=== PATIENT | male | born 1935 | race Caucasian/White ===

== ENCOUNTER 2016-10-28 11:00 | Inpatient (IN) ==
[2016-10-28 13:20] LABS: Basophils # (Auto) 0 K/mcL (0.0-0.3); Basophils % (Auto) 0.4 % (0.0-2.0); Eosinophils # (Auto) 0.1 K/mcL (0.0-0.7); Eosinophils % (Auto) 1.4 % (0.0-7.0); Granulocytes % (Auto) 41.8 % (38.0-78.0); Lymphocytes # (Auto) 3.1 K/mcL (1.5-4.8); Lymphocytes % (Auto) 43.3 % (15.5-49.0); Mean Cell Volume 97.5 fL (80.0-100.0); Mean Corpuscular HGB Conc 32.5 g/dL (31.0-36.0); Mean Corpuscular Hemoglobin 31.7 pg (26.0-34.0); Monocytes # (Auto) 0.9 K/mcL (0.1-0.9); Monocytes % (Auto) 13.1 % (1.0-12.0); Platelet Count 233 K/mcL (140-440); Red Cell Distribution Width 14.1 % (11.5-14.5)
[2016-10-28 13:35] LABS: Blood Urea Nitrogen 20 mg/dl (8-23)
[2016-10-28 14:24] LABS: Appearance,Urine CLEAR; Bacteria,Urine 0 /hpf (0); Bilirubin,Urine NEG (NEG); Color,Urine YELLOW; Glucose,Urine (UA) NEGATIVE (NEG); Leukocyte Esterase,Urine NEG /uL (NEG); Nitrate,Urine NEG (NEG); Protein,Urine NEG (NEG); Specific Gravity,Urine 1.009 (1.000-1.035); Urine Blood 0.2 mg/dL (<0.03); Urine RBC < 1 /hpf (0-1); Urine Squamous Epithelial Cell 0 /hpf (0-4); Urine WBC < 1 /hpf (0-4); Urobilinogen,Urine NEG (NEG)
[2016-11-04] MEDS ORDERED: ceFAZolin 1 GM VIAL IV SCH (05:00)
[2016-11-04] MEDS ORDERED: CELECOXIB 200 MG CAPSULE PO SCH (05:00)
[2016-11-04] MEDS ORDERED: ACETAMINOPHEN 500 MG TABLET PO SCH (05:00)
[2016-11-04] MEDS ORDERED: PREGABALIN 150 MG CAPSULE PO SCH (05:00)
[2016-11-04] MEDS ORDERED: oxyCODONE 10 MG TAB.ER.12H PO SCH (05:00)
[2016-11-04] MEDS ORDERED: ONDANSETRON 4 MG/2 ML VIAL IV ONE (09:40)
[2016-11-04] MEDS ORDERED: ROPIVACAINE HCL/PF 30 ML VIAL IJ ONE (09:40)
[2016-11-04] MEDS ORDERED: fentaNYL 250 MCG/5 ML VIAL IV ONE (09:40)
[2016-11-04] MEDS ORDERED: PROPOFOL 200 MG/20 ML VIAL IV ONE (09:40)
[2016-11-04] MEDS ORDERED: LIDOCAINE HCL/PF 100 MG/5 ML SYRINGE IV ONE (09:40)
[2016-11-04] MEDS ORDERED: DEXAMETHASONE 10 MG/ML VIAL IV ONE (09:40)
[2016-11-04] MEDS ORDERED: TRANEXAMIC ACID 1,000 MG/10 ML VIAL IV ONE ×2 (09:40→11:00)
[2016-11-04] MEDS ORDERED: MIDAZOLAM 5 MG/5 ML VIAL IV ONE (09:40)
[2016-11-04] MEDS ORDERED: PHENYLEPHRINE 10 MG/ML VIAL IV ONE (09:40)
[2016-11-04] MEDS ORDERED: GENTAMICIN SULFATE 800 MG/20 ML VIAL IR ONE (10:27)
[2016-11-04] MEDS ORDERED: METHOCARBAMOL 1,000 MG/10 ML VIAL IV PRN (10:39)
[2016-11-04] MEDS ORDERED: PROMETHAZINE 25 MG/ML VIAL IV PRN (10:39)
[2016-11-04] MEDS ORDERED: MEPERIDINE 25 MG/ML SYRINGE IV PRN (10:39)
[2016-11-04] MEDS ORDERED: METOPROLOL TARTRATE 5 MG/5 ML VIAL IV PRN (10:39)
[2016-11-04] MEDS ORDERED: ONDANSETRON 4 MG/2 ML VIAL IV PRN ×2 (10:39→11:00)
[2016-11-04] MEDS ORDERED: NALOXONE HCL 0.4 MG/ML VIAL IV PRN (10:39)
[2016-11-04] MEDS ORDERED: diphenhydrAMINE 50 MG/ML VIAL IV PRN (10:39)
[2016-11-04] MEDS ORDERED: ATROPINE SULFATE 0.4 MG/ML VIAL IV PRN (10:39)
[2016-11-04] MEDS ORDERED: HYDROmorphone 2 MG/ML SYRINGE IV PRN ×2 (10:39→11:00)
[2016-11-04] MEDS ORDERED: BENZOCAINE/MENTHOL 1 LOZENGE PO PRN (10:39)
[2016-11-04] MEDS ORDERED: IPRATROPIUM/ALBUTEROL 3 ML AMPUL.NEB NEB PRN (10:39)
[2016-11-04] MEDS ORDERED: ePHEDrine 50 MG/ML AMPUL IV PRN (10:39)
[2016-11-04] MEDS ORDERED: FLUMAZENIL 0.1 MG/ML ML IV PRN (10:39)
[2016-11-04] MEDS ORDERED: LACTATED RINGERS 1,000 ML IV SCH (10:45)
--- NOTE | 2016-11-04 10:59 | Brief Operative Note ---
Date of procedure: 11/04/16 Pre-op diagnosis: Right shoulder rca Post-op diagnosis: same Procedure: right reverse tsa Grafts/Implants: Yes Anesthesia: GETA Complications Description: 11/04/16 10:59 none Surgeon: Mateo Walker Surety Bond Agent: Keshawn Dwyer Estimated blood loss (cc): 20 Specimens Removed/Pathology: none sent Condition: stable Disposition: PACU
[2016-11-04] MEDS ORDERED: FLEETS ADULT ENEMA PR PRN (11:00)
[2016-11-04] MEDS ORDERED: POLYETHYLENE GLYCOL 3350 17 GM PACKET PO PRN (11:00)
[2016-11-04] MEDS ORDERED: MAGNESIUM HYDROXIDE 30 ML ORAL.SUSP PO PRN (11:00)
[2016-11-04] MEDS ORDERED: TEMAZEPAM 15 MG CAPSULE PO PRN (11:00)
[2016-11-04] MEDS ORDERED: KETOROLAC 15 MG/ML VIAL IV PRN (11:00)
[2016-11-04] MEDS ORDERED: HYDROcodone/APAP 10/325MG TABLET PO PRN (11:00)
[2016-11-04] MEDS ORDERED: BISACODYL 10 MG SUPP.RECT PR PRN (11:00)
[2016-11-04] MEDS ORDERED: ACETAMINOPHEN 325 MG TABLET PO PRN (11:00)
--- NOTE | 2016-11-04 12:04 | Operative Note ---
DATE OF OPERATION: 11/04/2016 PREOPERATIVE DIAGNOSES: Right shoulder degenerative arthritis, severe, biceps tendinopathy, rotator cuff tear. POSTOPERATIVE DIAGNOSIS: Right shoulder degenerative arthritis, severe biceps tendinopathy, rotator cuff tear. PROCEDURE: Right reverse total shoulder with cementless components, biceps tenodesis. SURGEON: Mateo Walker MD IP NETWORK ARCHITECT: Keshawn Dwyer PA-C ANESTHESIA: General LMA anesthesia. COMPLICATIONS: None. ESTIMATED BLOOD LOSS: About 20 mL DESCRIPTION OF PROCEDURE: The patient was brought to the operating room and put to sleep with general LMA anesthesia. Once asleep, the patient had the right shoulder sterilely prepped and draped in the usual sterile fashion. We placed Ioban over the skin to confirm the operative site. Preop antibiotics and tranexamic acid had been given. We then made a deltopectoral approach, identified the cephalic vein and this was retracted laterally. We then released the subscap anteriorly, released the remnants of the biceps tendon and then dislocated the shoulder. We cut our neck cut at the anatomical neck. Once this was done, we removed the bony fragments, placed a plate on the humeral head, subluxed posteriorly and performed a 360 degree capsulotomy and then placed a central hole in the glenoid at a 10-degree inclination which was reamed up to the size for 40 implant. We implanted a Metaglene with a 32 central screw, placed three additional screws, which measured 28, 24, 36, and all locked very well. We placed a 40 mm eccentric head with 2 mm of eccentricity and 2 mm of offset. A 40 mm implant was placed over the Metaglene, which was tapped into place. The glenosphere was locked. We then prepared the humerus. The humerus was reamed up to the size of a 10 stem. A 10 stem was trialled with standard thickness poly. A second cut of the neck to shorten this slightly for balancing the shoulder. We irrigated. This seemed to fit very nicely. Once this was done, we then implanted a size 10 cementless stem, a standard thickness poly. Once this was in place, we reduced the shoulder and irrigated thoroughly. We repaired the biceps tendon to the pectoralis major with 2 [id number] #1 Ethibond stitches. We irrigated thoroughly. We then closed the deltopectoral interval with 0 Vicryl and closed the skin with 2-0 Vicryl and kai. The patient tolerated this well without complication. EM:jaiden Job ID: [id number] Doc ID: [id number] Mateo aWlker MD
--- NOTE | 2016-11-04 12:24 | XRay Report ---
HISTORY: Reason for Exam:Post-OP Total Shoulder FINDINGS: There is a well positioned reverse shoulder prosthesis. No fracture is present. There is air in the soft tissues around the joint due to the surgical procedure. The AC joint is normal. IMPRESSION: Well-positioned right shoulder prosthesis Interpreted and Authenticated by: Zeus Hardy 11/04/16
[2016-11-04] MEDS: 0.45 % SODIUM CHLORIDE 1,000 ML IV SCH ×2 (12:31→19:53)
[2016-11-04] MEDS: 0.9 % SODIUM CHLORIDE 10 ML SYRINGE IV SCH ×2 (12:33→23:49)
[2016-11-04] MEDS: BENZOCAINE/MENTHOL 1 LOZENGE PO PRN ×2 (15:53→19:52)
[2016-11-04] MEDS: ceFAZolin 1 GM VIAL IV SCH (16:59)
[2016-11-04] MEDS: DOCUSATE SODIUM 100 MG CAPSULE PO SCH (20:26)
[2016-11-04] MEDS ORDERED: SENNOSIDES 1 TABLET PO SCH (21:00)
[2016-11-05] MEDS: ceFAZolin 1 GM VIAL IV SCH (02:07)
[2016-11-05] MEDS: 0.45 % SODIUM CHLORIDE 1,000 ML IV SCH (05:21)
[2016-11-05] MEDS: 0.9 % SODIUM CHLORIDE 10 ML SYRINGE IV SCH (05:21)
--- NOTE | 2016-11-05 07:42 | Orthopedic Progress Note ---
Subjective Patient information: Note initiated : 11/05/16 at 7:41 am Service Date, if different from initiated Date: [] Patient: Jose Mccord 81 y/o M admitted on 11/04/16 for Right Reverse Total Shoulder Arthroplasty and . Chief Complaint: [Pt is stable this morning on post operative day 1 without any significant concerns or complaints. Patients vital signs have remained stable. Patients dressing is dry and exhibits a grossly intact neurovascular and neuromotor exam. Patients 10 point ROS is otherwise negative. ] Objective Vital signs: Vital Signs Temp Pulse Resp BP Pulse Ox 11/05/16 04:00 97.9 F 97 H 20 109/55 92 11/05/16 00:00 97.1 F L 96 H 20 134/62 91 11/04/16 20:00 97.3 F L 99 H 20 125/67 91 11/04/16 16:00 97.4 F L 20 112/64 91 11/04/16 14:19 81 123/71 92 11/04/16 14:04 81 129/73 93 11/04/16 13:49 80 117/74 92 11/04/16 13:34 77 125/79 93 11/04/16 13:19 75 138/80 93 11/04/16 13:04 72 149/78 96 11/04/16 12:50 76 150/74 96 11/04/16 12:34 75 149/75 94 11/04/16 12:02 97.4 F L 76 16 123/45 94 11/04/16 11:52 80 17 136/55 94 11/04/16 11:40 82 10 L 133/54 98 11/04/16 11:35 79 11 L 116/52 97 11/04/16 11:30 80 12 125/55 97 11/04/16 11:25 80 12 116/55 97 11/04/16 11:20 97.5 F L 78 12 108/46 94 11/04/16 08:00 97.3 F L 84 18 153/66 96 Intake and Output 11/04/16 11/05/16 11/05/16 21:59 05:59 13:59 Intake Total 840 / 840 600 / 600 Output Total 575 / 575 500 / 500 Balance 265 / 265 100 / 100 Intake: Oral 840 / 840 600 / 600 Output: Void Amount 575 / 575 500 / 500 Other: # Bowel Movements 1 Weight 200 lb Intake & Output: Intake & Output 11/04/16 11/05/16 11/05/16 21:59 05:59 13:59 Intake Total 840 / 840 600 / 600 Output Total 575 / 575 500 / 500 Balance 265 / 265 100 / 100 Weight 200 lb Intake: Oral 840 / 840 600 / 600 Output: Void Amount 575 / 575 500 / 500 Other: # Bowel Movements 1 Incision: Yes healing Incision clean and dry: Yes Dressing: Yes clean Weight bearing status: full Neurological exam IM: Yes motor sensory intact, Yes neurovascular intact Extremities exam IM: Yes neurovascular intact - Labs CBC & BMP: 10/28/16 10:32 10/28/16 10:32 Labs: Orthopedic Labs 10/28/16 10/28/16 10:35 10:32 PT 13.7 INR 1.0 APTT 30 10/28/16 10:32 Hgb 14.9 Hct 45.9 Assessment and Plan (1) Hx of total shoulder replacement Patient has been educated regarding wound care and dressings, follow up recommendations, and medication use. We will f/u with the patient within 2-3 weeks for wound check. Status: Acute
--- NOTE | 2016-11-05 07:45 | Discharge Summary ---
Ortho Discharge - TSA - Patient Instructions Diet: Regular Diet Activity: activity as tolerated, weight bearing as tolerated Total Shoulder Protocol: Leave immobilizer in place except for bathing and ROM. Abduction pillow. Continue to wear sling until seen by physician. Codman Pendulum : These exercises use momentum produced by your body to move your shoulder joint. Bend your knees and shift your weight to your front leg, then back, allowing your arm to swing in the same directions. Using the same technique, alternately shift your weight between your right and left legs, allowing your arm to swing from side to side. These exercises are also performed in counterclockwise and clockwise circular motions. Typically these exercises are performed several times per day, for a set number repetitions or minutes, such as 20 times in a row or 5 minutes at a time. Dressing Care: May shower in 2 days - Problem Maintenance (1) Hx of total shoulder replacement Status: Acute - Follow Up Plan Follow Up Appointments: Mateo Walker MD [Physician] - 11/19/16 10:40 am Disposition: Home, Self-Care Prognosis: Good Rehab Potential: Good I certify that the patient requires SNF services: No Overall status at discharge: patient is progressing back to baseline - Orders For Discharge Prescriptions: Docusate Sodium [Colace] 100 mg PO BID #60 capsule HYDROcodone/APAP 10/325MG [[place] 10/325Mg] 1 - 2 tab PO Q4HP PRN #75 tablet PRN Reason: Pain
[2016-11-05] MEDS: DOCUSATE SODIUM 100 MG CAPSULE PO SCH (08:23)
[2016-11-05] MEDS: BENZOCAINE/MENTHOL 1 LOZENGE PO PRN (08:24)
[2016-11-05] MEDS ORDERED: LISINOPRIL 10 MG TABLET PO SCH (09:00)
== END 2016-11-05 10:10 | disposition home or self-care (01) | DRG 483 ==
LOC: MEDSUR 11-04 07:50
PROVIDERS: ADMIT Orthopaedic Surgery; ATTEND Orthopaedic Surgery